=== PATIENT | male | born 1935 | race Caucasian/White ===

== ENCOUNTER 2017-02-10 17:34 | Inpatient (IN) | payer MEDICARE ==
[~2017-02-10] VITALS: Ht 172.7 cm; Wt 76.1 kg
--- NOTE | ~2017-02-10 | DS ---
PATIENT'S NAME: Wu BOWDEN [facility] AGE: 81 Y [address] ROOM: [place] [address] [place] [facility] [place]: 02/10/2017 Discharge Summary DISCHARGE DATE: 02/13/2017 FAMILY PHYSICIAN: PHYSICIAN, ANN MARIE ATTENDING PHYSICIAN: Antoine Vee CONSULTING PHYSICIAN: Dr. Timothy Castaneda M.D. DISCHARGE DIAGNOSES: 1. Right hip intertrochanteric fracture. 2. Hypertension. PROCEDURES PERFORMED: Open reduction internal fixation of the right hip done 02/11/[address] Timothy Castaneda. HOSPITAL COURSE: Please refer to admitting history and physical as dictated by Dr. Vee. Briefly, the patient was admitted to [facility] where he was found to have a nondisplaced right hip intertrochanteric fracture. Dr. Timothy Castaneda was consulted. He was cleared for surgery. He underwent ORIF of the right hip on 02/11/2017. Postoperatively he was given Ancef IV for prophylaxis. He was made 50% weightbearing of his right lower extremity. Malcolm was used for pain. Physical Therapy and Occupational Therapy were consulted. On the day of discharge due to his hypertension, he was started on metoprolol 12.5 mg p.o. daily. Lovenox was used for postop DVT prophylaxis. On 02/13/2017, the patient's pain was well controlled with Malcolm. His vital signs were stable. It was felt as though he was safe to be discharged to home with followup with Dr. Castaneda in 7 days and to follow up with Dr. Shawanda Fernandez in 1 week with a CBC, BMP, and blood pressure check at that time. LABORATORY DATA: Sodium 143, potassium 4.4, calcium 8.7, BUN 26, creatinine 0.9, phos 2.0. GFR greater than 60. WBCs 10.4, hemoglobin upon admit 15.4 and 13.2 prior to discharge, hematocrit 38.5, and platelets 157. UA: Leukocytes 500, nitrites positive, blood 10, WBCs 50 to 100, bacteria many, WBC clumps few. RADIOLOGY REPORTS: Chest x-ray shows no focal infiltrate, pleural effusion, or pneumothorax. Perihilar interstitial markings suggesting interstitial edema. DISCHARGE INSTRUCTIONS: The patient will be discharged to home. No dressing changes needed. ACTIVITY: Right lower extremity, 50% weight bearing. PATIENT'S NAME: Wu BOWDEN [facility] AGE: 81 Y [address] ROOM: [place] [address] [place] [facility] [place]: 02/10/2017 Discharge Summary DISCHARGE DATE: 02/13/2017 FAMILY PHYSICIAN: ANN MARIE WOO ATTENDING PHYSICIAN: Antoine Vee DISCHARGE MEDICATIONS: 1. Lovenox 40 mg subcu daily x14 days postop for DVT prophylaxis. 2. Malcolm 5/325 one or two tablets p.o. every 4 hours as needed for pain. 3. Metoprolol 12.5 mg p.o. daily. Thank you for allowing us to participate in the care of this patient as he has been hospitalized at [facility]. CHERELLE LEDESMA APRN FOR MD MATT REES/rocky /[id number] CC: MD Shawanda Garcia MD d: 02/14/17 1425 t: 02/15/17 1203, DISCHARGE SUMMARY
--- NOTE | ~2017-02-10 | DS ---
PATIENT'S NAME: Wu BOWDEN [facility] AGE: 81 Y [address] ROOM: [place] [address] LOCATION: [facility] [place] ADMIT DATE: 02/10/2017 Discharge Summary DISCHARGE DATE: 02/13/2017 FAMILY PHYSICIAN: PHYSICIAN, ANN MARIE ATTENDING PHYSICIAN: Antoine Vee PRIMARY DIAGNOSIS: Right hip intertrochanteric fracture. SECONDARY DIAGNOSIS: Hypertension. PROCEDURE PERFORMED: Open reduction and internal fixation of right hip intertrochanteric fracture with intramedullary device (gamma nail). HISTORY OF PRESENT ILLNESS: The patient is an 81-year-old male. He was brought to the [facility] Emergency Room on February 10, 2017, with a chief complaint of right hip pain when he tripped and fell while in the process of reaching for a garage door handle. Please refer to his consultation notes as well as his admission history and physical. HOSPITAL COURSE: The patient underwent the above specified procedure on 02/11/2017 without complications. Spinal plus general anesthesia was utilized. He received 24 hours of perioperative prophylactic antibiotics. He remained hemodynamically stable and neurovascularly intact throughout his entire hospital course. His postoperative deep venous thrombosis prophylaxis consisted of Lovenox 40 mg, early mobilization, and pneumatic compression devices. He received daily physical therapy for gait training and transfer training. On his date of discharge, the incision at the hip was healing well and showed no signs of infection. DISPOSITION: Home. DISCHARGE ACTIVITY: He is to be strict 50% weightbearing of the right lower extremity. There is to be no right hip strengthening or range of motion. There is to be no dressing changes. He is to notify Dr. Castaneda immediately if he experiences increased pain, fevers, chills, erythema, or drainage. DISCHARGE MEDICATIONS: 1. Lovenox 40 mg subcutaneously daily for DVT prophylaxis. 2. Seymour 5/325, take 1-2 tablets p.o. every 6 to 8 hours as needed for pain. FOLLOWUP: Followup date is scheduled for February 21, 2017, for initial postop evaluation and x-rays at that time. PATIENT'S NAME: Wu BOWDEN [facility] AGE: 81 Y [address] ROOM: [place] [address] LOCATION: [facility] – [place] ADMIT DATE: 02/10/2017 Discharge Summary DISCHARGE DATE: 02/13/2017 FAMILY PHYSICIAN: ANN MARIE WOO ATTENDING PHYSICIAN: Antoine Vee HERI LANDRY FOR MD DUTCH BRITT/modl /[id number] d: 02/24/17 0226 t: 02/28/17 1512, DISCHARGE SUMMARY
--- NOTE | ~2017-02-10 | CON ---
PATIENT'S NAME: Wu BOWDEN [facility] AGE: 81 Y [address] ROOM: [place] [address] [place] [facility] [place] [facility] [place] DATE: 02/10/2017 Consultation DISCHARGE DATE: FAMILY PHYSICIAN: PHYSICIAN, NO ATTENDING PHYSICIAN: Antoine Vee DATE OF CONSULTATION: 02/10/2017 REFERRING PHYSICIAN: SHEREEN JEFFRIES MD HISTORY OF PRESENT ILLNESS: Dr. Vee has requested that I provide an inpatient consultation on this 81- year-old male, who was brought to the [facility] Emergency Room this evening with a chief complaint of right hip pain when he tripped and fell (landing on his right side) while in the process of reaching for a garage door handle. He fell from a standing position on the ground. He denies history of preexisting right hip pain. He denies pain elsewhere as a result of the fall. He specifically denies head trauma or loss of consciousness. At baseline, he lives independently and functions independently and does not require an assistive device for ambulation. He was unable to get up after he fell (secondary to right hip pain). He localizes the pain to the peritrochanteric region. The ambulance brought him to the emergency room. ALLERGIES: NO KNOWN DRUG ALLERGIES. PRESENT MEDICATIONS: Naproxen. SOCIAL HISTORY: . Accompanied by his who is appropriately concerned. REVIEW OF SYSTEMS: He denies chest pain or shortness of breath. He denies pain in his other 3 extremities. He denies numbness or paresthesias in his right foot. He denies head trauma or loss of consciousness. He denies history of deep venous thrombosis. PHYSICAL EXAMINATION: GENERAL: Alert, oriented, well-hydrated, well-nourished, pleasant cooperative gentleman, who appears much younger than his stated age. VITAL SIGNS: Respiratory rate 16. MUSCULOSKELETAL: There is no leg-length discrepancy. There are no active skin lesions, masses, muscle atrophy, or peripheral edema in either lower PATIENT'S NAME: Wu BOWDEN [facility] AGE: 81 Y [address] ROOM: [place] [address] [place] [facility] [place] [facility] [place] DATE: 02/10/2017 Consultation DISCHARGE DATE: FAMILY PHYSICIAN: PHYSICIAN, NO ATTENDING PHYSICIAN: Smolik,Antoine J extremity. There is pain with passive range of motion of the right hip. There is no pain with passive range of motion of the left hip. There is tenderness at the right greater trochanter. He is able to actively dorsiflex and plantar flex both ankles with 5/5 motor strength. 1+ posterior tibial pulses bilaterally. RADIOGRAPHS: Right hip radiographs demonstrate a nondisplaced, noncomminuted intertrochanteric fracture. There is no lytic lesion. There is no hardware. There is no joint space narrowing. IMPRESSION: Nondisplaced right hip intertrochanteric fracture. RECOMMENDATIONS: I have discussed operative and nonoperative options. I have discussed relative risks, benefits, limitations, and alternatives to open reduction and internal fixation. I have discussed potential adverse sequelae of the injury itself as well. We have specifically discussed the potential for infection, deep venous thrombosis, pulmonary embolism, mortality, malunion, nonunion, neurovascular complications, and blood transfusion risks. The patient has been placed at bedrest. Mechanical DVT prophylaxis and incentive spirometry have been initiated. We will proceed to the operating room for open reduction and internal fixation tomorrow morning (pending medical clearance and operating room availability). SHEREEN JEFFRIES MD JMW/modl /[id number] CC: Antoine Vee MD d: 02/11/17 0357 t: 02/16/17 2222, CONSULTATION REPORT
--- NOTE | ~2017-02-10 | ER ---
PATIENT'S NAME: Wu BOWDEN [facility] AGE: 81 Y [address] ROOM: [place] [address] [place] [facility] [place]: 02[place]10[place] ER/Outpatient Report DISCHARGE DATE: FAMILY PHYSICIAN: PHYSICIAN, NO ATTENDING PHYSICIAN: Antoine Vee Time of Arrival: 1735 hours. The patient was initially seen at 1735 hours by YAS Turner. I arrived at 1745 hours and took over his care from there. CHIEF COMPLAINT: Right hip pain. HISTORY OF PRESENT ILLNESS: The patient was working in his garage. He was trying to get the garage door to go down, and he lost his balance and fell landing on his right hip. States he did not hit his head at all. Did not receive any other injury. He arrived for per [facility]. Denies any previous history of injury to his hip. ALLERGIES: HE HAS NO KNOWN ALLERGIES. MEDICATIONS: No current medications. MEDICAL HISTORY: He has chronic swelling of the left ankle area; had meatal stenosis. PAST SURGICAL HISTORY: Urethral dilation in October 2014 and questionable right knee surgery in the past. He states he may have had a scope of his knee, can not quite remember. SOCIAL HISTORY: He lives at home with his . Denies use of tobacco, drugs, or alcohol. REVIEW OF SYSTEMS: All negative other than those mentioned in the HPI. PHYSICAL EXAMINATION: VITAL SIGNS: He weighs 82 kg, blood pressure is 184/83, pulse of 92, respirations 20, temperature of 98 tympanic, O2 saturation is 95% on room air. GENERAL: He is awake, alert, and oriented x4. SKIN: His skin is pink, warm, and dry. RESPIRATIONS: Even and nonlabored. Lung sounds are clear throughout. PATIENT'S NAME: Wu BOWDEN [facility] AGE: 81 Y [address] ROOM: [place] [address] [place] [facility] [place]: 02/10/2017 ER/Outpatient Report DISCHARGE DATE: FAMILY PHYSICIAN: PHYSICIAN, NO ATTENDING PHYSICIAN: Antoine Vee HEART: Regular rate and rhythm. ABDOMEN: Soft and nondistended. Bowel sounds are present. Extremities: He has strong pedal pulses bilaterally. He does have nonpitting edema of the left ankle area. Denies any pain or discomfort of that area. LABORATORY AND DIAGNOSTIC STUDIES: Hip and pelvis x-rays were ordered. X-ray did call us with concerns of a fracture, so fracture hip protocol was followed. Chest x-ray was completed. Right hip x-ray shows a nondisplaced intertrochanteric fracture, and the chest x-ray was within normal limits. EKG was completed. It shows a sinus rhythm. CBC was done. It is within normal limits. Chem panel: Sodium is 143, potassium is 4.4, chloride 109, BUN is 26 with creatinine of 0.9. GFR is greater than 60. UA was completed. He does have 500 leukocytes, positive for nitrites with many bacteria. EMERGENCY DEPARTMENT COURSE: Dr. Castaneda was contacted regarding the patient. He wants hospitalist notified for admission. Dr. Vee was contacted. He did come and evaluate the patient. Dr. Castaneda did come to the ER and see the patient. IMPRESSION: 1. Right intertrochanteric fracture hip. 2. Urinary tract infection. PLAN: The patient will be admitted to Med-Surg for care of the hospitalist and Dr. Castaneda. Family is aware of plan of care. FILI LARRY APRN FOR MD DYLAN GALEAS/rocky /[id number] d: 02/11/17 0248 t: 03/15/17 1101, OUTPATIENT REPORT
--- NOTE | ~2017-02-10 | HP ---
PATIENT'S NAME: Wu BOWDEN [facility] AGE: 81 Y [address] ROOM: [place] [address] [place]: [facility] [place] ADMIT DATE: 02/10/2017 History & Physical DISCHARGE DATE: FAMILY PHYSICIAN: PHYSICIAN, NO ATTENDING PHYSICIAN: Antoine Vee DATE OF SERVICE: 02/10/2017 CHIEF COMPLAINT: Right hip fracture. HISTORY OF PRESENTING ILLNESS: This 81-year-old white male, previously healthy, was brought to [facility] Emergency Department by ambulance after a fall, which occurred at his home this evening. Briefly, he was reaching to release his garage door from the per diem physical therapist by a handled rope. While he was extended, his hand slipped from the rope, and he fell awkwardly onto his right-side onto a concrete garage floor. He had pain immediately and was unable to rise to a stand. His , who is nearby, came to his assistance. After approximately 20 minutes and being unable to get up on his own, they decided to call the EMS services. He was brought to the emergency department for definitive evaluation and management. He denies hitting his head, and there were no other injuries associated with the incident. He denies headache pain. Denies dizziness or lightheadedness. He has not become faint or passed out, and he has not had any other recent falls. Denies neck pain. No chest pain, shortness of breath, or abdominal pain. He has not noticed any palpitations or racing heartbeat and denies orthopnea. He usually sleeps "okay." He eats and drinks normally. Denies any difficulties with chewing or swallowing. No abdominal pain. He stools regularly and voids without any problems. He denies dysuria or urgency or hesitancy. 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 No numbness or tingling in his other extremities. ALLERGIES: NO KNOWN DRUG ALLERGIES. ILLNESSES: 1. Osteoarthritis, generalized. 2. Hand paresthesias on the right. CURRENT MEDICATIONS: PATIENT'S NAME: Wu BOWDEN [facility] AGE: 81 Y [address] ROOM: [place] [id number] LOC[place]: [facility] [place] ADMIT DATE: 02/10/2017 History & Physical DISCHARGE DATE: FAMILY PHYSICIAN: PHYSICIAN, NO ATTENDING PHYSICIAN: Antoine Vee None. FAMILY HISTORY: Significant for multiple myeloma in his father, who at the age 56. Mother lived to the age of 93. SOCIAL HISTORY: He is and lives in [place]. He is a nonsmoker and does not drink alcohol. REVIEW OF SYSTEMS: As per HPI. All other organ systems reviewed and are negative. OBJECTIVE: VITAL SIGNS: Temperature 98, pulse 78, respirations 20, blood pressure 149/80, weight is 72.3 kilos. GENERAL: He is pleasant, cooperative, lying in bed, a little hard of hearing, but in no acute distress. SKIN: Supple, pink, warm, dry. There is some scaling and seborrheic debris about the face, but no other obvious skin rashes. HEENT: Otherwise, normocephalic. Sclerae nonicteric. Pupils equal, round, and reactive to light and accommodation. Extraocular movements appear intact. Nasal turbinates normal in appearance. Oropharynx clear. Mucous membranes are pink and moist. Dentition appears intact. NECK: Supple. No masses or adenopathy. No thyromegaly. No JVD. CHEST: Wall is symmetrical. HEART: Regular without murmurs. LUNGS: Clear bilaterally. No wheezes or crackles are heard. ABDOMEN: Soft, flat, nontender. Bowel sounds present. No mass or hepatosplenomegaly. and RECTAL: Not done. EXTREMITIES: Display some trace to 1+ pitting edema in the left lower extremity, chronic. No clubbing. NEUROLOGICAL: Hard of hearing, otherwise no focal deficits. LABORATORY AND X-RAY DATA: A 12-lead EKG shows normal sinus rhythm without any acute abnormalities. CBC showed a white blood cell count 10.4, hemoglobin 15.4, hematocrit 43.7, platelets 157. Chemistries are pending. PT and PTT of 10.3 and 25 with an INR of 0.98. Urinalysis is pending. Chest x-ray shows diffuse fibrotic stranding. No acute infiltrates. Cardiac silhouette unremarkable. X-ray of the right hip shows a nondisplaced very minimally angulated intertrochanteric fracture of the proximal femur. ASSESSMENT AND PLAN: PATIENT'S NAME: Wu OBWDEN [facility] AGE: 81 Y [address] ROOM: [place] [address] [place]: [facility] [place] ADMIT DATE: 02/10/2017 History & Physical DISCHARGE DATE: FAMILY PHYSICIAN: PHYSICIAN, NO ATTENDING PHYSICIAN: Antoine Vee 1. Right proximal femur fracture, intertrochanteric with minimal displacement, status post fall, stable. The patient is admitted to [facility] by Dr. Castaneda. He is placed on the hip pathway. We will provide supportive cares and clinical monitoring. Symptomatic measures and pain control for tonight. He is tentatively scheduled for operative repair in the morning. There are no absolute contraindications to proceed. 2. Essential hypertension. He does not have a documented history of high blood pressure. This could be situational. We will monitor the trend and consider initiating treatment if he remains elevated. 3. Lymphedema, left leg, chronic, he is minimally symptomatic. We will try to keep the legs elevated for now, consider CLOVIS hose, and mobilize as soon as he is physically able. 4. Right hand paresthesias, chronic, secondary to old nerve compression injury. Encourage restorative care. 5. Osteoarthritis, generalized. Symptomatic measures and encourage mobilization. No nonsteroidal antiinflammatory drugs. 6. Deep venous thrombosis prophylaxis. We will follow the VTE protocol. MD KAYLEY REILLY/shilpal /[id number] D: 032 T: [id number] HISTORY & PHYSICAL
--- NOTE | ~2017-02-10 | OR ---
PATIENT'S NAME: Wu BOWDEN [facility] AGE: 81 Y [address] ROOM: [place] [id number] [place] [facility] [place]: 02/10/2017 OR/Procedure Report DISCHARGE DATE: FAMILY PHYSICIAN: PHYSICIAN, NO ATTENDING PHYSICIAN: Antoine Vee SURGEON: Timothy Castaneda MD [employer]: DATE OF PROCEDURE: 02/11/2017 PREOPERATIVE DIAGNOSIS: Intertrochanteric fracture right hip. POSTOPERATIVE DIAGNOSIS: Intertrochanteric fracture right hip. PROCEDURE PERFORMED: Open reduction and internal fixation of right hip intertrochanteric fracture with intramedullary device (gamma nail). ANESTHESIA: Spinal plus general. ESTIMATED BLOOD LOSS: Less than 100 mL. IMPLANTS: Synthes TFN-A 11 mm x 125 degrees x 235 mm right femoral nail with 105 mm screw and 38 mm distal interlocking screw. DRAINS: None. SPECIMEN: None. COMPLICATIONS: None. INDICATION FOR PROCEDURE: Please refer to my separately dictated consultation note. The patient presents with a right hip intertrochanteric fracture. Operative and nonoperative options have been reviewed. Potential adverse sequelae of the injury itself have been reviewed. Risks, benefits, limitations, and indications for surgery have been thoroughly reviewed and informed consent has been granted. We have specifically reviewed risks and implications of the following: infection, malunion, nonunion, deep venous thrombosis, pulmonary embolism, mortality, neurovascular complications, blood transfusion risks, decubitus ulcer formation, pneumonia, avascular necrosis, and the potential need for further surgery (including the potential need for salvage with hip hemiarthroplasty versus total hip arthroplasty). We have discussed the necessity for 2 months of restricted weightbearing postoperatively. A preoperative internal medicine consultation has been obtained, and the patient has been medically cleared for surgery. DESCRIPTION OF PROCEDURE: The patient was positioned supine on the fracture PATIENT'S NAME: Wu BOWDEN [facility] AGE: 81 Y [address] ROOM: [address] [address] [place] [facility] [place]: 02/10/2017 OR/Procedure Report DISCHARGE DATE: FAMILY PHYSICIAN: PHYSICIAN, NO ATTENDING PHYSICIAN: Antoine Vee table after administration of anesthesia and prophylactic antibiotics. The correct side and anticipated procedure were confirmed via a verbal timeout including myself, the behavior clinician, and the circulating nurse. A well-padded groin post was placed. Both feet and ankles were well padded. The left foot was placed into a stirrup-type leg leong. The right foot was placed into a traction boot. Under fluoroscopic guidance, gentle longitudinal traction and internal rotation were applied across the fracture site through the right foot until a suitable reduction had been confirmed under AP and lateral fluoroscopic imaging. The lateral aspect of the right hip and thigh were scrubbed, prepped, and draped with vigilant sterile technique. The tip of the right greater trochanter was approached through a 5 cm direct lateral longitudinal incision. The iliotibial band was sharply divided longitudinally in line with the overlying skin incision. The tip of the right greater trochanter was palpated, and a cannulated awl was utilized to access the intramedullary canal of the proximal femur through the tip of the right greater trochanter. A ball tipped guidewire was placed through the awl and across the fracture site under fluoroscopic guidance, and the awl was subsequently removed. The cannulated entrance reamer was utilized through the appropriate soft tissue guide. The gamma nail was seated to the appropriate depth over the guidewire, and the guidewire was extracted. Fluoroscopic imaging confirmed appropriate position of the gamma nail. The outrigger guide and guide cannula were subsequently utilized to place a threaded-tipped guidewire centrally within the right femoral head and neck through a separate direct lateral 2 cm longitudinal incision. Appropriate position of the guidewire was confirmed under AP and lateral fluoroscopic imaging. Appropriate depth for the lag screw was measured. The cannulated reamer was set to the appropriate depth and fully seated through the appropriate soft tissue guide. The lag screw was seated to the appropriate depth under AP and lateral fluoroscopic guidance. The anti-rotational set screw was deployed. The outrigger guide and cannula were subsequently utilized to place the distal interlocking screw through a separate 5 mm direct lateral longitudinal incision. AP, lateral, and oblique fluoroscopic imaging of the right hip and right proximal femur confirmed appropriate position of all hardware and maintenance of an appropriate reduction of the fracture. Each of the 3 incisions was thoroughly irrigated with bacteriostatic saline PATIENT'S NAME: Wu BOWDEN [facility] AGE: 81 Y [address] ROOM: [place] [address] [place] [facility] [place]: 02/10/2017 OR/Procedure Report DISCHARGE DATE: FAMILY PHYSICIAN: PHYSICIAN, NO ATTENDING PHYSICIAN: Antoine Vee. The fascia was closed with simple deep interrupted 0 Vicryl sutures. Each of the incisions was closed with superficial buried interrupted 2-0 Vicryl sutures and surgical mt. The dressings consisted of Xeroform gauze, sterile gauze, and occlusive tape. There were no complications. The patient was carefully transferred off the fracture table and transported to the postanesthesia care unit in stable condition. MD OMID BRITT/rocky /[id number] d: 02/11/17 1511 t: 02/16/17 2225, OPERATIVE SUMMARY
[2017-02-10 18:25] LABS: BASOPHIL % 0.2 %; EOSINOPHIL # 0.3 K/uL (0.0-0.5); EOSINOPHIL % 2.8 %; HEMATOCRIT 43.7 % (33.0-50.0); HEMOGLOBIN 15.4 g/dL (11.0-16.0); IMMATURE GRANULOCYTE % 0.4 %; LYMPHOCYTE # 4.7 K/uL (0.8-4.0); LYMPHOCYTE % 44.6 %; MCH 30.2 pg (27.0-34.0); MCHC 35.2 gm/dL (32.0-36.5); MCV 85.7 fl (83.0-98.0); MONOCYTE # 0.7 K/uL (0.0-1.0); MONOCYTE % 6.7 %; MPV 9.9 fl (9.4-12.4); NEUTROPHIL # (ANC) 4.7 K/uL (1.4-9.0); NEUTROPHIL % 45.3 %; NRBC % 0 /100WBC (0-0.00); PLATELET COUNT 157 K/uL (150-450); RDW-CV 12.8 % (11.9-14.6); WBC 10.4 K/uL (4.0-11.0)
[2017-02-10 18:33] LABS: INR - (THERAPEUTIC) 0.98 (0.92-1.07); PROTIME 10.3 SECONDS (9.8-11.4); PTT 25 SECONDS (25-32)
[2017-02-10 18:39] LABS: ALBUMIN 3.2 gm/dL (3.5-5.0); ANION GAP 12.4 (10.0-19.0); BLOOD UREA NITROGEN 26 mg/dL (6-24); CALCIUM 8.7 mg/dL (8.5-10.5); CHLORIDE 109 mMol/L (96-110); CO2 26 mMol/L (22-32); CREATININE 0.9 mg/dL (0.6-1.3); ESTIMATED GFR (MDRD EQUATION) > 60; POTASSIUM 4.4 mMol/L (3.7-5.1); SODIUM 143 mMol/L (135-145)
[2017-02-10] MEDS ORDERED: ALEVE220 MG PO (19:19)
[2017-02-10 19:51] LABS: BILIRUBIN URINE NEGATIVE (NEGATIVE); BLOOD URINE 10 /UL (NEGATIVE); COLOR URINE YELLOW (YELLOW); GLUCOSE URINE NEGATIVE (NEGATIVE); KETONE URINE NEGATIVE (NEGATIVE); LEUKOCYTES URINE 500 /UL (NEGATIVE); NITRITE URINE POSITIVE (NEGATIVE); PH URINE 6.5 (4.0-8.0); PROTEIN URINE NEGATIVE (NEGATIVE); UROBILINOGEN URINE NORMAL (NORMAL)
[2017-02-10 19:58] LABS: TURBIDITY URINE 1+ (CLEAR)
[2017-02-10 19:59] LABS: BACTERIA URINE MANY (NEGATIVE); EPITHELIAL URINE NEGATIVE #/HPF (NEGATIVE); RBC URINE NEGATIVE #/HPF (NEGATIVE); WBC URINE 50-100 #/HPF (NEGATIVE)
[2017-02-10 20:00] LABS: WBC CLUMPS URINE FEW (NEGATIVE)
--- NOTE | 2017-02-11 02:05 | NUR ---
this is a 81year old male who fell yesterday in his garage while attempting to disconect the door from the pipeline engineer. pt is a/o x3. pt has had minimal c/o pain and refuses pain medication. pt has nka, hx of r knee surgery and issues with urinary retention and swelling of uretheral opening.. pt is hypertensive on admission but doesn't take any home medications and bp is normally well controlled.
--- NOTE | 2017-02-11 05:37 | NUR ---
Significant Event:pt is a/o x3. pt has iv to r wrist w/ d5 running @ 80ml/hr. dayami, pt npo since midno, plan for orif of right hip this morning. consent signed and preop checklist started and on the chart. pt has c/o minimal pain and refused pain medication. pt refusing repo but is able to shift himself around in bed and off his bottom. Follow up:surgery this morning.
--- NOTE | 2017-02-11 10:03 | NUR ---
A-CONSULT RECEIVED PER ROUTINE HIP FX ORDERS S/P R)HIP FX HT: 68 IN. WT: 76.1 KG BMI: 25.5 LABS: NA 143, K+ 4.4, GLU 112, BUN 26, FLOOR SCRAPER 0.9, ALB 3.2, PREALB 19.0 MEDS: PEPCID, MORPHINE, ZOFRAN, NORCO, CEFAZOLIN DIET RX: NPO. PRIOR TO ADMIT, NO WT LOSS AND APPETITE WAS GOOD. EST NUTR. NEEDS: 2202-6708 KCALS (25-30 KCALS/KG) 84-99 GM PROTEIN (1.1-1.3 GM/KG) 1 ML FLUID PER KCAL D-NOT AT NUTRITION RISK AT THIS TIME; NO NUTRITION DX IDENTIFIED I-CURRENT DIET RX IS NPO M/E-GOAL: RESUME ORAL DIET WHEN MEDICALLY INDICATED 1)WILL F/U DIET RX AND PO INTAKE POST-OP AND ADD NUTRITION INTERVENTIONS IS NEEDED IN 2-3 DAY 2)ASSIST NEEDED
--- NOTE | 2017-02-11 16:18 | NUR ---
Significant Event:Back from surgery at 1150.Has mepilex drsg x2 to Rt.hip & are D/I.Has ice to Rt.hip & Rt.leg is elevated.Mock draining clear yellow urine.May dangle on edge of bed tonoc.Has been pretty comfortable.No N/V.Taking flds.well.IV in Rt.wrist. Follow up:
--- NOTE | 2017-02-12 04:11 | NUR ---
Shift Summary: Patient is a two assist to transfer. Is 50% wt bearing to right leg. Transfered to recliner last night and chose to stay there to sleep for comfort. Took one norco at 2049. Will removed stock before the end of the shift. Patient tolerating regular diet well.
[2017-02-12 06:06] LABS: HEMATOCRIT 38.5 % (33.0-50.0); HEMOGLOBIN 13.2 g/dL (11.0-16.0)
--- NOTE | 2017-02-12 16:57 | NUR ---
Significant Event:Is A/O.Has SL in Rt.wrist.2 incisional sites on Rt.wrist covered with myiplex drsgs which are D/I.Has been amb short ways with walker & 1 assist.Has voided 360ml urine since dayami flores'd this morning.Eating & drinking ok.Had norco at 1335.Pleasant. Follow up:
--- NOTE | 2017-02-13 03:29 | NUR ---
Shift Summary: Patient can ambulate with walker and one assist. Good pain control with [place]. Last dose at 2112. Tolerating regular diet well. Voiding without difficulty.
[2017-02-13] MEDS ORDERED: LOVENOX 4040 MG/0.4 SUB-Q (09:01)
[2017-02-13] MEDS ORDERED: NORCO 5-325 TA1 EACH PO (09:03)
--- NOTE | 2017-02-13 10:15 | NUR ---
Introduced self/role to patient, he lives in [place] with his Sharmila. Planning to go home today. will be there to assist and has grandchildren as needed to help. He installed a walk in shower and bench a few years ago. Has all the DME he thinks he will need. Inquired if he had a family doctor? No. Added my name to his marker board, denied any barriers to discharge.
[2017-02-13] MEDS ORDERED: LOPRESSOR25 MG PO (12:22)
--- NOTE | 2017-02-13 12:31 | NUR ---
Patient preferred to sleep in chair and tolerated well. Has been repositioning frequently in his chair. Dressing intact to right hip. Denies pain and nausea. Family here to take patient home. Just waiting for Dr. Elliott to make round and release patient. Will continue to monitor. Dismiss to home when able.
--- NOTE | 2017-02-13 13:16 | NUR ---
NUTRITION F/U PO INTAKE HAS IMPROVED TO 75-100% SINCE LAST EVENING. NO C/O OF NAUSEA NOTED. PT IS PLANNING ON GOING HOME TODAY. REMAINS AT LOW NUTRITION RISK.
--- NOTE | 2017-02-13 14:24 | NUR ---
D:Orders received for patient to be dismissed. I:Dismissal instructions were prepared and reviewed with the patient and his spouse and their daughter. The following information was reviewed with the patient: diet and activity recommendations for home, dressing/incisional care for home (ok to shower/do not change/remove dressing), home medications/new prescription medications, and plans for follow up appointments with Dr. Kiran Fernandez and Dr. Castaneda next week. Instructed pt on new medication metoprolol that he should start per Dr. Elliott order. The patient said he was not starting on any new medications right now and that he would not get the prescription filled. I visited with patient regarding rationale why Dr. Elliott started medication for BP and importance of patient following up with Dr. Fernandez on this. The patient said he would wait and visit with Dr. Fernandez about it next week. Coretta teaching given to and reviewed with the patient on the following topics: Discharge Instructions for Hip Fracture Surgery, Lovenox, Preventing DVT After Surgery, [place] and Lovenox Injection for Discharge. The patient was given a lovenox kit for home and had demonstrated giving his morning dose of lovenox to himself to his primary nurse, Rose. R:The patient verbalized understanding of above teaching and denied further questions at this point in time. The patient's spouse verbalized understanding of the teaching as well. The dismissal paperwork was signed by the patient and prescriptions were given to him. P:The patient's primary nurse, Rose, was informed that the dismissal teaching had been completed. The patient will be dismissed shortly. Ba BASILIO
== END 2017-02-13 13:55 | disposition disaster alternative care site (69) | DRG 481 ==
LOC: GACC 17:34 → GMSU 18:39
PROVIDERS: Nurse Practitioner Family; Orthopaedic Surgery; ADMIT Family Medicine
PROC: 0QS604Z Reposition Right Upper Femur with Internal Fixation Device, Open Approach (ICD-10-PCS; principal; 2017-02-11)
DX: S72.143A Displaced intertrochanteric fracture of unspecified femur, initial encounter for closed fracture (principal); N39.0 Urinary tract infection, site not specified; I10 Essential (primary) hypertension; I89.0 Lymphedema, not elsewhere classified; Z87.81 Personal history of (healed) traumatic fracture; M15.9 Polyosteoarthritis, unspecified; R20.9 Unspecified disturbances of skin sensation; W18.39XA Other fall on same level, initial encounter
CPT/HCPCS: C1713; J0690; J1650; J7042; J7120